=== PATIENT | male | born 1985 | race African-American/Black ===

== ENCOUNTER 2016-10-18 19:45 | Inpatient (IN) | payer SELFPAY ==
[~2016-10-18] VITALS: Ht 175.3 cm; Wt 63.8 kg
[~2016-10-18 19:45] MED LIST: MONT10TA2
[2016-10-18 19:51] VITALS: BP 148/70; PULSE 75; RESP 18; TEMP 98.5; O2SAT 98
[2016-10-18 20:03] VITALS: O2SAT 100
[2016-10-18 20:49] LABS: AUTOMATED NEUTROPHIL # 5.6 TH/MM3 (1.8-7.7); BASOPHIL # 0.1 TH/MM3 (0-0.2); BASOPHIL % 0.5 % (0.0-2.0); EOSINOPHIL # 0.7 TH/MM3 (0-0.4); EOSINOPHIL % 7.2 % (0.0-4.0); HEMATOCRIT 45.8 % (39.0-51.0); HEMO FLAGS DIFF FINAL; LYMPH % 22.8 % (9.0-44.0); LYMPHOCYTE # 2.1 TH/MM3 (1.0-4.8); MEAN CELL VOLUME 85.5 FL (80.0-100.0); MEAN CORPUSCULAR HEMOGLOBIN 27.5 PG (27.0-34.0); MEAN CORPUSCULAR HGB CONC 32.2 % (32.0-36.0); MONO % 8.8 % (0.0-8.0); NEUT % 60.7 % (16.0-70.0); PLATELET COUNT 263 TH/MM3 (150-450); RED BLOOD COUNT 5.36 MIL/MM3 (4.50-5.90); RED CELL DISTRIBUTION WIDTH 14.6 % (11.6-17.2); WHITE BLOOD COUNT 9.2 TH/MM3 (4.0-11.0)
[2016-10-18] MEDS: PROPOFOL 500 MG/50 ML BTL IV ONE ×2 (20:56→20:57)
[2016-10-18 21:08] VITALS: BP 152/68; PULSE 71; RESP 18; O2SAT 99
[2016-10-18 21:10] LABS: POTASSIUM 4.1 MEQ/L (3.5-5.1)
--- NOTE | 2016-10-18 21:20 | RADRPT ---
EXAM DATE/TIME: 10/18/2016 20:41 [facility] COMPARISON: No previous studies available for comparison. INDICATIONS : Trauma, struck a competitors leg, right leg pain MEDICAL HISTORY : None. SURGICAL HISTORY : None. ENCOUNTER: Initial ACUITY: 1 day PAIN SCORE: 8/10 LOCATION: Right distal leg FINDINGS: There is persistent tibiotalar dislocation in fiberglass. The tibia is displaced medially. CONCLUSION: Persistent tibiotalar dislocation. Jaime Owen MD FACR on October 18, 2016 at 21:17 Board Certified Radiologist. This report was verified electronically.
--- NOTE | 2016-10-18 21:20 | RADRPT ---
EXAM DATE/TIME: 10/18/2016 20:40 [facility] COMPARISON: No previous studies available for comparison. INDICATIONS : Trauma, struck a competitors leg, right leg pain MEDICAL HISTORY : None. SURGICAL HISTORY : None. ENCOUNTER: Initial ACUITY: 1 day PAIN SCORE: 8/10 LOCATION: Right distal leg FINDINGS: Two view examination of the right tibia demonstrates no evidence of fracture or dislocation. Bony mi neralization is normal. The soft tissue structures are intact. Fractures again seen about the ankle . CONCLUSION: Fracture again seen about the ankle in [facility]. Jaime Owen MD FACR on October 18, 2016 at 21:18 Board Certified Radiologist. This report was verified electronically.
--- NOTE | 2016-10-18 21:30 | PD ---
HPI Chief Complaint: Injury Time Seen by Provider: 19:56 Travel History International Travel<30 days: No Contact w/Intl Traveler<30days: No Traveled to known affect area: No History of Present Illness HPI Is a 31-year-old male who was wrestling in an organized emergency practice today and he dislocated his right ankle. Arrives via EMS splinted in the position he was found, no other complaints denies any head injury neck injury back injury chest injury or abdomen injury. Did otherwise healthy male. He was given morphine 8 mg IV in route. [facility] Past Medical History Asthma: Yes Diminished Hearing: No Immunizations Current: Yes Tetanus Vaccination: > 5 Years Influenza Vaccination: No Past Surgical History Surgical History: No Previous Surgery Social History Alcohol Use: Yes (OCCASIONAL) Tobacco Use: No Substance Use: No Allergies-Medications (Allergen,Severity, Reaction): Coded Allergies: No Known Allergies (Verified , 10/18/16) Reported Meds & Prescriptions Reported Meds & Active Scripts Active No Active Prescriptions or Reported Medications Review of Systems Except as stated in HPI: all other systems reviewed are Neg Physical Exam Narrative GENERAL: Well-developed well-nourished, no distress. SKIN: Focused skin assessment warm/dry. HEAD: Atraumatic. Normocephalic. EYES: Pupils equal and round. No scleral icterus. No injection or drainage. ENT: No nasal bleeding or discharge. Mucous membranes pink and moist. NECK: Trachea midline. No JVD. CARDIOVASCULAR: Regular rate and rhythm. No murmur appreciated. RESPIRATORY: No accessory muscle use. Clear to auscultation. Breath sounds equal bilaterally. GASTROINTESTINAL: Abdomen soft, non-tender, nondistended. Hepatic and splenic margins not palpable. MUSCULOSKELETAL: There is an obvious dislocation of his right ankle ring the foot is externally rotated past 90 from the tib-fib. Dorsalis pedal pulses bounding, tib-fib pulses not palpable initially secondary to anatomy distortion. Proximal tib-fib foot are nontender and no abnormality. Hips normal, upper extremities atraumatic. NEUROLOGICAL: Awake and alert. No obvious cranial nerve deficits. Motor grossly within normal limits. Normal speech. PSYCHIATRIC: Appropriate mood and affect; insight and judgment normal. Data Data Last Documented VS Vital Signs Date Time Temp Pulse Resp B/P Pulse Ox O2 Delivery O2 Flow Rate FiO2 10/18/16 21:08 71 18 152/68 99 Nasal Cannula 2 10/18/16 19:51 98.5 Orders Basic Metabolic Panel (Bmp) (10/18/16 19:56) Complete Blood Count With Diff (10/18/16 19:56) Propofol 500 Mg/50 Ml Inj (Diprivan 500 (10/18/16 20:00) Ankle, Complete ([id number]) (10/18/16 ) Tibia/Fibula (Ap/Lat) (10/18/16 ) Consult Orthopedic (10/18/16 ) Admit Order (Ed Use Only) (10/18/16 ) Admit To Inpatient (10/18/16 ) Vital Signs (Adult) Q4H (10/18/16 22:06) Activity Bed Rest (10/18/16 22:06) Diet Npo (10/19/16 Breakfast) Sodium Chlor 0.9% 1000 Ml Inj (Ns 1000 M (10/18/16 22:06) Acetaminophen (Tylenol) (10/18/16 22:15) Ondansetron Inj (Zofran Inj) (10/18/16 22:15) Prothrombin Time / Inr (Pt) (10/19/16 06:00) Scd Bilateral/Knee High MARK.BID (10/18/16 22:06) Isaias Bilateral/Knee High MARK.QSHIFT (10/18/16 22:06) Morphine Inj (Morphine Inj) (10/18/16 22:15) Morphine Inj (Morphine Inj) (10/18/16 22:15) Naloxone Inj (Narcan Inj) (10/18/16 22:15) Magnesium Hydroxide Liq (Milk Of Magnesi (10/18/16 22:15) Sennosides (Senokot) (10/18/16 22:15) Bisacodyl Supp (Dulcolax Supp) (10/18/16 22:15) Lactulose Liq (Lactulose Liq) (10/18/16 22:15) Inpatient Certification (10/18/16 ) Labs Laboratory Tests Test 10/18/16 20:20 White Blood Count 9.2 TH/MM3 Red Blood Count 5.36 MIL/MM3 Hemoglobin 14.8 GM/DL Hematocrit 45.8 % Mean Corpuscular Volume 85.5 FL Mean Corpuscular Hemoglobin 27.5 PG Mean Corpuscular Hemoglobin 32.2 % Concent Red Cell Distribution Width 14.6 % Platelet Count 263 TH/MM3 Mean Platelet Volume 8.6 FL Neutrophils (%) (Auto) 60.7 % Lymphocytes (%) (Auto) 22.8 % Monocytes (%) (Auto) 8.8 % Eosinophils (%) (Auto) 7.2 % Basophils (%) (Auto) 0.5 % Neutrophils # (Auto) 5.6 TH/MM3 Lymphocytes # (Auto) 2.1 TH/MM3 Monocytes # (Auto) 0.8 TH/MM3 Eosinophils # (Auto) 0.7 TH/MM3 Basophils # (Auto) 0.1 TH/MM3 CBC Comment DIFF FINAL Differential Comment Sodium Level 139 MEQ/L Potassium Level 4.1 MEQ/L Chloride Level 105 MEQ/L Carbon Dioxide Level 24.0 MEQ/L Anion Gap 10 MEQ/L Blood Urea Nitrogen 15 MG/DL Creatinine 1.29 MG/DL Estimat Glomerular Filtration 80 ML/MIN Rate Random Glucose 96 MG/DL Calcium Level 9.2 MG/DL MDM Medical Decision Making Medical Screen Exam Complete: Yes Emergency Medical Condition: Yes Differential Diagnosis Ankle fracture, ankle dislocation, complete tendon rupture likely. Narrative Course Patient was roomed in the emergency department, he was sedated and reduced after informed consent. Basic labs sent as part of preop workup, ankle reduced , pulse motor and sensory remained intact after reduction of multiple rechecks in the emergency department. Patient was discussed with Dr. Díaz, he is reviewed the x-rays and recommend patient for operative intervention in the morning. This was conveyed to the patient he is agreeable. Patient was discussed with Dr. Ortiz for admission. Procedures Procedure Narrative After the risks and benefits were discussed the following procedure was performed: MODERATE SEDATION: The patient was placed on a cardiac care unit nurse and pulse oximetry. An ambu bag and suction was immediately available at bedside. The patient was monitored by the nurse. Oxygen saturation , heart rate and blood pressure were monitored. Procedural sedation was acheived using 200 mg of propofol. The patient was observed until awake and alert. Procedural Sedation time in attendance was 16 minutes. No apnea and no bradycardia no hypoxia and no hypotension during sedation. ORTHOPEDIC REDUCTION: After informed consent, the patient was reduced with standard traction countertraction method and was rotated in a more anatomic position. Pulses motor and sensory were intact before and after the reduction. He was splinted posterior slab. [facility] circuit board repair technician is assisting this procedure as well as Ayesha [id number]. Diagnosis Primary Impression: Ankle fracture, right Additional Impression: Ankle dislocation Admitting Information Admitting Physician Requests: Admit Scripts No Active Prescriptions or Reported Meds Condition: Stable Syed Chan MD Oct 18, 2016 21:30
[2016-10-18] MEDS ORDERED: NALOXONE HCL 0.4 MG/ML AMP IV PRN (22:15)
[2016-10-18] MEDS ORDERED: LACTULOSE SYRUP 20 GM/30 ML CUP PO PRN (22:15)
[2016-10-18] MEDS ORDERED: ACETAMINOPHEN 325 MG TAB PO PRN (22:15)
[2016-10-18] MEDS ORDERED: ONDANSETRON HCL 4 MG/2 ML VIAL IVP PRN (22:15)
[2016-10-18] MEDS ORDERED: SENNOSIDES 8.6 MG TAB PO PRN (22:15)
[2016-10-18] MEDS ORDERED: BISACODYL 10 MG SUPP RECTAL PRN (22:15)
[2016-10-18] MEDS ORDERED: MAGNESIUM HYDROXIDE SUSP 30 ML CUP PO PRN (22:15)
[2016-10-18] MEDS ORDERED: MORPHINE SULFATE 4 MG/ML INJ IV PRN (22:15)
[2016-10-18] MEDS: SODIUM CHLOR 0.9% 1000 ML INJ 1,000 ML IV SCH (22:40)
[2016-10-18 22:41] VITALS: BP 136/68
--- NOTE | 2016-10-18 23:52 | HHI.HP ---
[facility] No Primary Care Physician Admission Diagnosis Ankle fracture dislocation Diagnoses: Chief Complaint: RT ankel fracture Travel History International Travel<30 Days: No Contact w/Intl Traveler <30 Da: No Traveled to Known Affected Are: No History of Present Illness 31 y/o male with no medical history presented to the ED via EMS with complaints of right ankle pain. Patient states he was at [facility] when he felt his ankle twisted. He states the pain is throbbing, 4/10, no associated symptoms, made worse with movement, and the pain is better with the pain medication. Denies any chest pain, sob, fever or chills. Past Family Social History Past Medical History Patient denies any medical history. Past Surgical History Patient denies any surgical history. Reported Medications Reported Meds & Active Scripts Active No Active Prescriptions or Reported Medications Allergies: Coded Allergies: No Known Allergies (Verified , 10/18/16) Active Ordered Medications Current Medications Medications (Trade) Dose Ordered Sig/Cullen Route Start Time Stop Time Status Last Admin (NS 1000 ml Inj) 1,000 ml @ 100 mls/hr Q10H IV 10/18/16 22:06 10/18/16 22:40 (Tylenol) 650 mg Q4H PRN PO 10/18/16 22:15 (Zofran Inj) 4 mg Q6H PRN IVP 10/18/16 22:15 (Morphine Inj) 2 mg Q3H PRN IV 10/18/16 22:15 (Morphine Inj) 4 mg Q3H PRN IV 10/18/16 22:15 (Narcan Inj) 0.4 mg UNSCH PRN IV 10/18/16 22:15 (Milk Of Magnesia Liq) 30 ml Q12H PRN PO 10/18/16 22:15 (Senokot) 17.2 mg Q12H PRN PO 10/18/16 22:15 (Dulcolax Supp) 10 mg DAILY PRN RECTAL 10/18/16 22:15 (Lactulose Liq) 30 ml DAILY PRN PO 10/18/16 22:15 Family History Patient denies any family history, no heart disease or cancer. Social History Tobacco use: Denies Alcohol use: Occasionally Illicit drug use: Denies Physical Exam Vital Signs Vital Signs Date Time Temp Pulse Resp B/P Pulse Ox O2 Delivery O2 Flow Rate FiO2 10/18/16 22:41 61 18 136/68 99 10/18/16 21:08 71 18 152/68 99 Nasal Cannula 2 10/18/16 20:03 100 2.00 10/18/16 19:51 98.5 75 18 148/70 98 Physical Exam GENERAL: This is a well-nourished, well-developed patient, in no apparent distress. SKIN: No rashes, ecchymoses or lesions. Cool and dry. HEAD: Atraumatic. Normocephalic. EYES: Pupils equal round and reactive. ENT: Nose without bleeding, purulent drainage or septal hematoma. NECK: Trachea midline. No JVD or lymphadenopathy. CARDIOVASCULAR: Regular rate and rhythm without murmurs, gallops, or rubs. RESPIRATORY: Clear to auscultation. Breath sounds equal bilaterally. No wheezes , rales, or rhonchi. GASTROINTESTINAL: Abdomen soft, non-tender, nondistended. No hepato-splenomegaly , or palpable masses. MUSCULOSKELETAL:Rt ankle tenderness, and edema No calf tenderness. NEUROLOGICAL: Awake and alert. Motor and sensory grossly within normal limits. Normal speech. Laboratory Laboratory Tests Test 10/18/16 20:20 White Blood Count 9.2 Red Blood Count 5.36 Hemoglobin 14.8 Hematocrit 45.8 Mean Corpuscular Volume 85.5 Mean Corpuscular Hemoglobin 27.5 Mean Corpuscular Hemoglobin 32.2 Concent Red Cell Distribution Width 14.6 Platelet Count 263 Mean Platelet Volume 8.6 Neutrophils (%) (Auto) 60.7 Lymphocytes (%) (Auto) 22.8 Monocytes (%) (Auto) 8.8 Eosinophils (%) (Auto) 7.2 Basophils (%) (Auto) 0.5 Neutrophils # (Auto) 5.6 Lymphocytes # (Auto) 2.1 Monocytes # (Auto) 0.8 Eosinophils # (Auto) 0.7 Basophils # (Auto) 0.1 CBC Comment DIFF FINAL Differential Comment Sodium Level 139 Potassium Level 4.1 Chloride Level 105 Carbon Dioxide Level 24.0 Anion Gap 10 Blood Urea Nitrogen 15 Creatinine 1.29 Estimat Glomerular Filtration 80 Rate Random Glucose 96 Calcium Level 9.2 Result Diagram: 10/18/16201910/18/162019 Imaging Last Impressions Tibia/Fibula X-Ray 10/18/16 0000 Signed Impressions: Service Date/Time: Tuesday, October 18, 2016 20:40 - CONCLUSION: Fracture again seen about the ankle in [facility]. Jaime Owen MD FACR Ankle X-Ray 10/18/16 0000 Signed Impressions: Service Date/Time: Tuesday, October 18, 2016 20:41 - CONCLUSION: Persistent tibiotalar dislocation. Jaime Owen MD FACR Assessment and Plan Problem List: (1) Ankle fracture, right ICD Code: S82.891A Status: Acute Assessment and Plan 31 y/o male with no medical history presented to the ED via EMS with complaints of right ankle pain. Ankle Fracture, right Ankle xray reviewed shows Persistent tibiotalar dislocation. -Consult Orthopedic -Pain management with IV Morphine -NPO, Bedrest, IVF for hydration DVT prophylaxis: SCD on left LE ATTENDING MD NOTE: I personally examined the patient. He was injured during when he landed awkwardly. He felt immediate pain in the right ankle. No other injuries. Pain is well controlled with pain medication. He reports history of asthma, which is well controlled. No other pertinent medical history. Right leg in splint. Sensation is normal in the toes. Dislocation was reduced in ER. Orthopedic surgery consult is pending. Continue pain control. Discussed Condition With Patient Physician Certification 2 Midnight Certification Type: Admission for Inpatient Services Order for Inpatient Services The services are ordered in accordance with Medicare regulations or non- Medicare payer requirements, as applicable. In the case of services not specified as inpatient-only, they are appropriately provided as inpatient services in accordance with the 2-midnight benchmark. Estimated LOS (days): 2 days is the estimated time the patient will need to remain in the hospital, assuming treatment plan goals are met and no additional complications. Post-Hospital Plan: Home Problem Qualifiers (1) Ankle fracture, right: Deirdre Perkins FARHAN Oct 18, 2016 23:52 Naun Ortiz MD Oct 19, 2016 00:08
[2016-10-19 00:07] VITALS: BP 131/75; PULSE 63; RESP 18; TEMP 97.1; O2SAT 99
[2016-10-19] MEDS: MORPHINE SULFATE 4 MG/ML INJ IV PRN ×2 (00:39→09:55)
[2016-10-19] MEDS ORDERED: SODIUM CHLORID 0.9% 500 ML IV PRN (03:30)
[2016-10-19] MEDS ORDERED: METOPROLOL TARTRATE 25 MG TAB PO PRN (03:30)
[2016-10-19] MEDS ORDERED: LACTATED RINGER'S 1000 ML IV PRN (03:30)
[2016-10-19] MEDS ORDERED: POVIDONE IODINE 5% (ANTISEPSIS KIT) 4 APPLICATIONS EACH NARE PRN (03:30)
[2016-10-19] MEDS ORDERED: INSULIN HUMAN REGULAR 1,000 UNITS/10 ML VIAL SQ PRN (03:30)
[2016-10-19] MEDS ORDERED: CHLORHEXIDINE GLUCONATE 2 % 1 PACK (2 CLOTHS) TOPICAL PRN (03:30)
[2016-10-19 04:15] VITALS: BP 128/72; PULSE 63; RESP 18; TEMP 97.7; O2SAT 98
[2016-10-19 07:13] LABS: PROTHROMBIN TIME - PATIENT 11.6 SEC (9.8-11.6)
[2016-10-19 08:06] VITALS: BP 132/80; PULSE 62; RESP 18; TEMP 98.3; O2SAT 98
[2016-10-19] MEDS: SODIUM CHLOR 0.9% 1000 ML INJ 1,000 ML IV SCH (08:19)
--- NOTE | 2016-10-19 09:25 | HHI.PR ---
Subjective Remarks This is a pleasant 31 y/o Male with Right ankle pain after a practice of [employer] , he twisted his ankle. found with Right Ankle fracture, status post Orthopedic outpatient surgery rn consult and recommended Open reduction and internal fixation. no other complaint. Objective Vital Signs Date Time Temp Pulse Resp B/P Pulse Ox O2 Delivery O2 Flow Rate FiO2 10/19/16 08:06 98.3 62 18 132/80 98 10/19/16 04:15 97.7 63 18 128/72 98 10/19/16 00:45 18 10/19/16 00:07 97.1 63 18 131/75 99 10/18/16 22:41 61 18 136/68 99 10/18/16 21:08 71 18 152/68 99 Nasal Cannula 2 10/18/16 20:03 100 2.00 10/18/16 19:51 98.5 75 18 148/70 98 I/O 10/18/16 10/18/16 10/18/16 10/19/16 10/19/16 10/19/16 07:00 15:00 23:00 07:00 15:00 23:00 Intake Total 240 ml 566 ml Balance 240 ml 566 ml Intake Oral 240 ml 0 ml IV Total 566 ml # Voids 0 # Bowel Movements 0 Result Diagram: 10/18/16201910/18/162019 Imaging Last Impressions Tibia/Fibula X-Ray 10/18/16 0000 Signed Impressions: Service Date/Time: Tuesday, October 18, 2016 20:40 - CONCLUSION: Fracture again seen about the ankle in [facility]. Jaime Owen MD FACR Ankle X-Ray 10/18/16 0000 Signed Impressions: Service Date/Time: Tuesday, October 18, 2016 20:41 - CONCLUSION: Persistent tibiotalar dislocation. Jaime Owen MD FACR Procedures None Other Results Laboratory Tests Test 10/18/16 10/19/16 20:20 06:32 White Blood Count 9.2 TH/MM3 Red Blood Count 5.36 MIL/MM3 Hemoglobin 14.8 GM/DL Hematocrit 45.8 % Mean Corpuscular Volume 85.5 FL Mean Corpuscular Hemoglobin 27.5 PG Mean Corpuscular Hemoglobin 32.2 % Concent Red Cell Distribution Width 14.6 % Platelet Count 263 TH/MM3 Mean Platelet Volume 8.6 FL Neutrophils (%) (Auto) 60.7 % Lymphocytes (%) (Auto) 22.8 % Monocytes (%) (Auto) 8.8 % Eosinophils (%) (Auto) 7.2 % Basophils (%) (Auto) 0.5 % Neutrophils # (Auto) 5.6 TH/MM3 Lymphocytes # (Auto) 2.1 TH/MM3 Monocytes # (Auto) 0.8 TH/MM3 Eosinophils # (Auto) 0.7 TH/MM3 Basophils # (Auto) 0.1 TH/MM3 CBC Comment DIFF FINAL Differential Comment Sodium Level 139 MEQ/L Potassium Level 4.1 MEQ/L Chloride Level 105 MEQ/L Carbon Dioxide Level 24.0 MEQ/L Anion Gap 10 MEQ/L Blood Urea Nitrogen 15 MG/DL Creatinine 1.29 MG/DL Estimat Glomerular Filtration 80 ML/MIN Rate Random Glucose 96 MG/DL Calcium Level 9.2 MG/DL Prothrombin Time 11.6 SEC Prothromb Time International 1.0 RATIO Ratio Objective Remarks GENERAL: This is a well-nourished, well-developed patient, in no apparent distress. SKIN: No rashes, ecchymoses or lesions. Cool and dry. HEAD: Atraumatic. Normocephalic. EYES: Pupils equal round and reactive. ENT: Nose without bleeding, purulent drainage or septal hematoma. NECK: Trachea midline. No JVD or lymphadenopathy. CARDIOVASCULAR: Regular rate and rhythm without murmurs, gallops, or rubs. RESPIRATORY: Clear to auscultation. Breath sounds equal bilaterally. No wheezes , rales, or rhonchi. GASTROINTESTINAL: Abdomen soft, non-tender, nondistended. No hepato-splenomegaly , or palpable masses. MUSCULOSKELETAL:Rt ankle tenderness, and edema No calf tenderness. NEUROLOGICAL: Awake and alert. Motor and sensory grossly within normal limits. Normal speech. Medications and IVs Current Medications Medications (Trade) Dose Ordered Sig/Cullen Route Start Time Stop Time Status Last Admin (NS 1000 ml Inj) 1,000 ml @ 100 mls/hr Q10H IV 10/18/16 22:06 10/19/16 08:19 (Tylenol) 650 mg Q4H PRN PO 10/18/16 22:15 (Zofran Inj) 4 mg Q6H PRN IVP 10/18/16 22:15 (Morphine Inj) 2 mg Q3H PRN IV 10/18/16 22:15 (Morphine Inj) 4 mg Q3H PRN IV 10/18/16 22:15 10/19/16 00:39 (Narcan Inj) 0.4 mg UNSCH PRN IV 10/18/16 22:15 (Milk Of Magnesia Liq) 30 ml Q12H PRN PO 10/18/16 22:15 (Senokot) 17.2 mg Q12H PRN PO 10/18/16 22:15 (Dulcolax Supp) 10 mg DAILY PRN RECTAL 10/18/16 22:15 Lactulose 30 ml 30 ml DAILY PRN PO 10/18/16 22:15 Lactated Ringer's 1,000 ml @ 30 mls/hr Q24H PRN IV 10/19/16 03:30 10/22/16 03:29 (NS 500 ml Inj) 500 ml @ 30 mls/hr [id number] PRN IV 10/19/16 03:30 10/22/16 03:29 A/P Assessment and Plan 31 y/o male with no medical history presented to the ED via EMS with complaints of right ankle pain. Ankle Fracture, right Ankle xray reviewed shows Persistent tibiotalar dislocation. -for ORIF by Orthopedic surgery. -Pain management with IV Morphine -NPO, Bedrest, IVF for hydration DVT prophylaxis: SCD on left LE Discharge Planning Once cleared by Orthopedic laboratory specialist. Marek Vergara MD Oct 19, 2016 09:25
[2016-10-19 11:45] VITALS: BP 140/75; PULSE 47; RESP 18; TEMP 97.5; O2SAT 98
[2016-10-19] MEDS ORDERED: VANCOMYCIN HCL 1000 MG VIAL ONE (12:37)
[2016-10-19] MEDS ORDERED: ceFAZolin INJ 1,000 MG VIAL ONE (12:38)
[2016-10-19] MEDS ORDERED: BUPIVACAINE HCL PF 0.5% 30 ML VIAL ONE (12:38)
[2016-10-19] MEDS ORDERED: PROPOFOL 200 MG/20 ML AMP IV ONE (12:47)
[2016-10-19] MEDS ORDERED: NEOSTIGMINE 3 MG/3 ML SYR IV ONE (12:47)
[2016-10-19] MEDS ORDERED: fentaNYL CITRATE 250 MCG/5 ML AMP ONE (12:47)
[2016-10-19] MEDS ORDERED: ONDANSETRON HCL 4 MG/2 ML VIAL IV PUSH ONE (12:47)
[2016-10-19] MEDS ORDERED: GENTAMICIN SULFATE 80 MG/2 ML VIAL IRRIGATION ONE (13:30)
[2016-10-19] MEDS: DEXT 5%-NACL 0.45% 1000 ML INJ 1,000 ML IV SCH ×2 (14:00→23:12)
[2016-10-19] MEDS ORDERED: HYDR-3288 PO (14:03)
[2016-10-19] MEDS ORDERED: ASPI81CH37 CHEW (14:04)
[2016-10-19] MEDS ORDERED: DO NOT ADM ANY ANTICOAGULANT DRUGS PRN (14:13)
[2016-10-19] MEDS ORDERED: ACETAMINOPHEN/HYDROcodone 325 MG/7.5 MG TAB PO PRN ×2 (14:15)
[2016-10-19] MEDS ORDERED: MISCELLANEOUS PHARMACY INFORMATION XX ONE (14:15)
[2016-10-19] MEDS ORDERED: ONDANSETRON HCL 4 MG/2 ML VIAL IVP PRN (14:15)
[2016-10-19] MEDS ORDERED: NALOXONE HCL 0.4 MG/ML AMP IV PRN (14:15)
[2016-10-19] MEDS ORDERED: SODIUM CHLORIDE 0.9% FLUSH 5 ML FLUSH IVF PRN (14:15)
[2016-10-19] MEDS ORDERED: MISCELLANEOUS NURSING INFORMATION XX PRN (14:15)
[2016-10-19] MEDS ORDERED: MORPHINE SULFATE 4 MG/ML INJ IV PUSH PRN (14:15)
[2016-10-19] MEDS ORDERED: Post-op Orders (for Pharmacy) MISC XX ONE (14:15)
[2016-10-19] MEDS ORDERED: MAGNESIUM HYDROXIDE SUSP 30 ML CUP PO PRN (14:15)
[2016-10-19] MEDS ORDERED: MORPHINE SULFATE 30 MG/30 ML PCA IV SCH (14:15)
[2016-10-19] MEDS ORDERED: diphenhydrAMINE HCL 25 MG CAP PO PRN (14:15)
--- NOTE | 2016-10-19 14:17 | RADRPT ---
EXAM DATE/TIME: 10/19/2016 13:49 [facility] COMPARISON: No previous studies available for comparison. INDICATIONS : Open reduction internal fixation of the right ankle. MEDICAL HISTORY : None. SURGICAL HISTORY : None. ENCOUNTER: Subsequent ACUITY: 2 days PAIN SCORE: Non-responsive. LOCATION: Right ankle. CONCLUSION: Fluoroscopic images during plate and screws along the distal fibula. Syndesmotic screw noted. Fractur e near anatomic alignment. Mc Piedra MD on October 19, 2016 at 14:15 Board Certified Radiologist. This report was verified electronically.
[2016-10-19] MEDS ORDERED: MORPHINE SULFATE 4 MG/ML INJ ONE (14:25)
[2016-10-19] MEDS ORDERED: *MEPERIDINE 25 MG INJ VIAL PERIprocedural Use ONLY ONE (14:27)
--- NOTE | 2016-10-19 14:37 | MB ---
cc: JANEY FIGUEROA M.D. DATE OF CONSULTATION: 10/19/2016. REASON FOR CONSULTATION: Right ankle fracture. HISTORY OF PRESENT ILLNESS: This patient is a 31-year-old male who was doing mixed martial arts [employer] and was in a grappling match. He states his opponent had twisted his right ankle and he developed severe onset of pain. He felt his ankle snap. He was unable to stand or bear weight. He was taken to the [facility] Emergency Room where x-rays confirmed evidence of a right trimalleolar ankle fracture-dislocation. He was placed in a splint and admitted to the medical service and orthopedic surgery was consulted. The pain is severe and constant. It is worsened with any movement. No numbness or tingling. PAST MEDICAL HISTORY: Negative. PAST SURGICAL HISTORY: Negative. MEDICATIONS: He takes no medications. ALLERGIES: HE HAS NO KNOWN DRUG ALLERGIES. REVIEW OF SYSTEMS: A ten-point review of systems is negative other than the history of present illness. FAMILY HISTORY: Reviewed and noncontributory. SOCIAL HISTORY: He occasionally drinks alcohol. He does not use tobacco products or any drugs. PHYSICAL EXAMINATION: VITAL SIGNS: Temperature 98.5, pulse is 75, respirations 18, blood pressure 140/70. GENERAL: In general, the patient is a well-nourished male who is physically fit. HEAD, EYES, EARS, NOSE, THROAT: Normocephalic and atraumatic. Pupils round and reactive to light. Extraocular muscles intact. NECK: The neck is supple. LUNGS: Clear. HEART: Regular rate and rhythm. ABDOMEN: Abdomen soft and nontender. EXTREMITIES: On the right lower extremity he has his ankle splinted. He has swelling, ecchymosis and tenderness to palpation. He can flex and extend his toes distally with limitation of motion on clinical exam. LABORATORY STUDIES: White blood cell count is 9.2, hemoglobin 14, hematocrit is 45, platelet count 263,000. Creatinine 1.29, glucose is 96. X-RAYS: X-rays of the right ankle were reviewed. AP, lateral and oblique views show the trimalleolar ankle fracture dislocation. IMPRESSION: A 31-year-old male who sustained a traumatic injury to his right ankle doing mixed martial arts. He has a right trimalleolar ankle fracture-dislocation. PLAN: I discussed the diagnosis and treatment options including the option of nonoperative treatment versus surgery. The surgery consists of open reduction internal fixation. The risks of surgery were discussed, which include but are not limited to anesthesia, bleeding, infection, damage to nerve or blood vessels, pain, stiffness, failure of hardware, blood clots. The patient understands. He favors the benefits over the risks. He does wish to proceed with surgical intervention. Written consent has been obtained. The surgical site has been marked. MD EFREN Celis/JCAna /9:08 AM /2:28 PM
[2016-10-19 16:00] VITALS: BP 129/77; PULSE 67; RESP 18; TEMP 97.1; O2SAT 100
[2016-10-19 20:10] VITALS: BP 143/83; PULSE 60; RESP 18; TEMP 97.6; O2SAT 98
[2016-10-19] MEDS: SODIUM CHLORIDE 0.9% FLUSH 5 ML FLUSH IVF SCH (21:00)
[2016-10-19] MEDS: PCA - TOTAL MG MORPHINE DELIVERED PER SHIFT SCH (22:00)
[2016-10-19] MEDS: DOCUSATE SODIUM 50 MG/SENNA 8.6 MG TAB PO SCH (22:22)
[2016-10-20 00:10] VITALS: BP 130/84; PULSE 65; RESP 18; TEMP 98.9; O2SAT 96
[2016-10-20 04:02] VITALS: BP 134/82; PULSE 66; RESP 18; TEMP 98.4; O2SAT 97
[2016-10-20] MEDS: PCA - TOTAL MG MORPHINE DELIVERED PER SHIFT SCH (05:57)
[2016-10-20 08:00] VITALS: BP 142/84; PULSE 61; RESP 16; TEMP 98.2; O2SAT 99
--- NOTE | 2016-10-20 08:43 | PD.ORT.PN ---
Subjective Post Op Day #: 1 Subjective Remarks pain under control Objective Vitals Vital Signs Date Time Temp Pulse Resp B/P Pulse Ox O2 Delivery O2 Flow Rate FiO2 10/20/16 05:57 18 10/20/16 04:02 98.4 66 18 134/82 97 10/20/16 00:10 98.9 65 18 130/84 96 10/19/16 22:00 18 10/19/16 20:10 97.6 60 18 143/83 98 10/19/16 16:00 97.1 67 18 129/77 100 10/19/16 15:30 97.0 63 16 134/86 94 Room Air 10/19/16 15:00 14 10/19/16 14:45 80 16 154/84 94 Room Air 10/19/16 14:30 99 15 163/78 100 Nasal Cannula 3 10/19/16 14:20 96.4 91 14 166/99 100 Nasal Cannula 3 10/19/16 11:45 97.5 47 18 140/75 98 I/O 10/19/16 10/19/16 10/19/16 10/20/16 10/20/16 10/20/16 07:00 15:00 23:00 07:00 15:00 23:00 Intake Total 566 ml 1403 ml 2035 ml 736 ml Output Total 630 ml 1000 ml 750 ml Balance 566 ml 773 ml 1035 ml -14 ml Intake Oral 0 ml 480 ml 240 ml IV Total 566 ml 553 ml 1555 ml 496 ml Other 850 ml Output Urine Total 620 ml 1000 ml 750 ml Estimated Blood Loss 10 ml # Voids 0 # Bowel Movements 0 0 0 0 Result Diagram: 10/18/16201910/18/162019 Objective Remarks in bed, nad dressing and splint c/d/i nvi cap refill Assessment & Plan Ortho Post Op Day #: 1 Problem List: Assessment and Plan s/p ORIF R ankle with repair of syndesmosis NWB maintain splint pain control ortho stable, cleared for d/c when med stable f/up dr. thorpe 1-2 weeks Boyd Uriostegui Oct 20, 2016 08:43
[2016-10-20] MEDS ORDERED: CRUTMIS35 (08:45)
--- NOTE | 2016-10-20 08:56 | MP ---
cc: JANEY FIGUEROA M.D. DATE OF SURGERY: 10/19/2016 PREOPERATIVE DIAGNOSIS: Right trimalleolar ankle fracture with disruption of syndesmosis. POSTOPERATIVE DIAGNOSIS: Right trimalleolar ankle fracture with disruption of syndesmosis. OPERATION: 1. Open reduction, internal fixation right trimalleolar ankle fracture-dislocation. 2. Open reduction, internal fixation of right ankle syndesmotic injury. SURGEON Dr. Janey Figueroa AIRPLANE PILOT SUPERVISOR: KATHLEEN Keen ANESTHESIA General. ESTIMATED BLOOD LOSS: 50 cc TOURNIQUET TIME: Zero minutes COMPLICATIONS: None. JUSTIFICATION FOR PROCEDURE: This patient is a 31 year-old male who sustained a severe injury to the right lower extremity and right ankle while he was doing martial arts. He sustained complete fracture-dislocation of his right ankle. He was taken to [facility] emergency room. He was admitted. Orthopedic surgery was consulted. The patient was counseled on the risks, benefits and alternatives of the above named surgical procedure. He wished to proceed with surgery. A written consent was obtained. The patient was identified by name, taken to the operating room, placed supine on on the operating room table. General anesthesia was administered, as well as 2 grams of IV Ancef and 1 gram of IV vancomycin. The right lower extremity was prepped and draped using isopropyl alcohol, Hibiclens solution, Chloraprep solution. After a time out was performed, a longitudinal incision was made over the lateral aspect of the right ankle. After time-out was performed a longitudinal incision made over the lateral aspect of the right ankle. The fascial layer was incised and the periosteum elevated off the distal fibula. An open reduction was performed with the assistance of fracture reduction clamps. Subsequently Synthes distal tibial locking plate was applied over the lateral aspect of the distal fibula. A combination both locking and nonlocking screws were used for fixation. Fluoroscopic imaging showed hardware placement and fracture reduction to be appropriate. An incision was made over the lateral aspect of the knee and malleolus to assist with fracture reduction and also a fracture reduction tenaculum clamp was also placed to assist with reduction of syndesmotic injury. Subsequently a Synthes 50 x 3.5 millimeter fully threaded screw was placed from the lateral distal tibia through the plate into the tibia for surgical fixation repair of the syndesmotic injury. Fluoroscopic imaging showed hardware placement, fracture reduction. The ankle mortis appears appropriate and even the posterior malleolus fracture appeared in good alignment. The surgical wound was thoroughly irrigated with sterile saline solution. The subcutaneous layer was closed with a combination of 2-0 Vicryl and 3-0 Vicryl suture. Skin incision closed with bibi. Sterile dressing applied. The patient was placed in a well-padded leg dewitt. The patient tolerated the procedure well with no intraoperative complications. Note: Charles Uriostegui, physician medical assistant internal medicine certified was present during the entire procedure to include patient positioning and the procedure itself. The medical necessity of a physician medical assistant internal medicine was indicated in this case due to the complexity of the procedure itself. He assisted with appropriate manipulation of the ankle. He assisted with retraction and exposure, assisted with both achieving maintaining fracture reduction along with implantation of the internal fixation device. MD EFREN Celis/BRANDY /2:03 PM /8:17 AM
[2016-10-20] MEDS: SODIUM CHLORIDE 0.9% FLUSH 5 ML FLUSH IVF SCH (09:00)
[2016-10-20] MEDS: DOCUSATE SODIUM 50 MG/SENNA 8.6 MG TAB PO SCH (09:00)
[2016-10-20] MEDS ORDERED: MULTIVITAMINS/MINERALS THERAPEUTIC TAB PO SCH (09:00)
--- NOTE | 2016-10-20 09:09 | HHI.PR ---
Subjective Remarks This is a pleasant 31 y/o Male with Right ankle pain after a practice of [employer] , he twisted his ankle. found with Right Ankle fracture, status post Orthopedic media specialist consult and recommended Open reduction and internal fixation. no other complaint. 10/20: Patient in his bedroom, no complaint, okay to discharge from Orthopedic Surgery scripts in chart will go home today, no nausea, vomit or diarrhea. Objective Vital Signs Date Time Temp Pulse Resp B/P Pulse Ox O2 Delivery O2 Flow Rate FiO2 10/20/16 05:57 18 10/20/16 04:02 98.4 66 18 134/82 97 10/20/16 00:10 98.9 65 18 130/84 96 10/19/16 22:00 18 10/19/16 20:10 97.6 60 18 143/83 98 10/19/16 16:00 97.1 67 18 129/77 100 10/19/16 15:30 97.0 63 16 134/86 94 Room Air 10/19/16 15:00 14 10/19/16 14:45 80 16 154/84 94 Room Air 10/19/16 14:30 99 15 163/78 100 Nasal Cannula 3 10/19/16 14:20 96.4 91 14 166/99 100 Nasal Cannula 3 10/19/16 11:45 97.5 47 18 140/75 98 I/O 10/19/16 10/19/16 10/19/16 10/20/16 10/20/16 10/20/16 07:00 15:00 23:00 07:00 15:00 23:00 Intake Total 566 ml 1403 ml 2035 ml 736 ml Output Total 630 ml 1000 ml 750 ml Balance 566 ml 773 ml 1035 ml -14 ml Intake Oral 0 ml 480 ml 240 ml IV Total 566 ml 553 ml 1555 ml 496 ml Other 850 ml Output Urine Total 620 ml 1000 ml 750 ml Estimated Blood Loss 10 ml # Voids 0 # Bowel Movements 0 0 0 0 Result Diagram: 10/18/16201910/18/162019 Imaging Last Impressions Ankle X-Ray 10/19/16 0000 Signed Impressions: Service Date/Time: Wednesday, October 19, 2016 13:49 - CONCLUSION: Fluoroscopic images during plate and screws along the distal fibula. Syndesmotic screw noted. Fracture near anatomic alignment. Mc F. Tocci, MD Tibia/Fibula X-Ray 10/18/16 0000 Signed Impressions: Service Date/Time: Tuesday, October 18, 2016 20:40 - CONCLUSION: Fracture again seen about the ankle in [facility]. Jaime Owen MD FACR Procedures None Other Results Laboratory Tests Test 10/18/16 10/19/16 20:20 06:32 White Blood Count 9.2 TH/MM3 Red Blood Count 5.36 MIL/MM3 Hemoglobin 14.8 GM/DL Hematocrit 45.8 % Mean Corpuscular Volume 85.5 FL Mean Corpuscular Hemoglobin 27.5 PG Mean Corpuscular Hemoglobin 32.2 % Concent Red Cell Distribution Width 14.6 % Platelet Count 263 TH/MM3 Mean Platelet Volume 8.6 FL Neutrophils (%) (Auto) 60.7 % Lymphocytes (%) (Auto) 22.8 % Monocytes (%) (Auto) 8.8 % Eosinophils (%) (Auto) 7.2 % Basophils (%) (Auto) 0.5 % Neutrophils # (Auto) 5.6 TH/MM3 Lymphocytes # (Auto) 2.1 TH/MM3 Monocytes # (Auto) 0.8 TH/MM3 Eosinophils # (Auto) 0.7 TH/MM3 Basophils # (Auto) 0.1 TH/MM3 CBC Comment DIFF FINAL Differential Comment Sodium Level 139 MEQ/L Potassium Level 4.1 MEQ/L Chloride Level 105 MEQ/L Carbon Dioxide Level 24.0 MEQ/L Anion Gap 10 MEQ/L Blood Urea Nitrogen 15 MG/DL Creatinine 1.29 MG/DL Estimat Glomerular Filtration 80 ML/MIN Rate Random Glucose 96 MG/DL Calcium Level 9.2 MG/DL Prothrombin Time 11.6 SEC Prothromb Time International 1.0 RATIO Ratio Objective Remarks GENERAL: This is a well-nourished, well-developed patient, in no apparent distress. SKIN: No rashes, ecchymoses or lesions. Cool and dry. HEAD: Atraumatic. Normocephalic. EYES: Pupils equal round and reactive. ENT: Nose without bleeding, purulent drainage or septal hematoma. NECK: Trachea midline. No JVD or lymphadenopathy. CARDIOVASCULAR: Regular rate and rhythm without murmurs, gallops, or rubs. RESPIRATORY: Clear to auscultation. Breath sounds equal bilaterally. No wheezes , rales, or rhonchi. GASTROINTESTINAL: Abdomen soft, non-tender, nondistended. No hepato-splenomegaly , or palpable masses. MUSCULOSKELETAL:Rt ankle with Orthotics in place. NEUROLOGICAL: Awake and alert. Motor and sensory grossly within normal limits. Normal speech. Medications and IVs Current Medications Medications (Trade) Dose Ordered Sig/Cullen Route Start Time Stop Time Status Last Admin (Tylenol) 650 mg Q4H PRN PO 10/18/16 22:15 (Milk Of Magnesia Liq) 30 ml Q12H PRN PO 10/18/16 22:15 (Senokot) 17.2 mg Q12H PRN PO 10/18/16 22:15 (Dulcolax Supp) 10 mg DAILY PRN RECTAL 10/18/16 22:15 Lactulose 30 ml 30 ml DAILY PRN PO 10/18/16 22:15 Lactated Ringer's 1,000 ml @ 30 mls/hr Q24H PRN IV 10/19/16 03:30 10/22/16 03:29 Sodium Chloride 500 ml @ 30 mls/hr [id number] PRN IV 10/19/16 03:30 10/22/16 03:29 (D5W-1/2 NS 1000 ml Inj) 1,000 ml @ 100 mls/hr Q10H IV 10/19/16 14:00 10/19/16 23:12 (NS Flush) 2 ml UNSCH PRN IVF 10/19/16 14:15 (NS Flush) 2 ml BID IVF 10/19/16 21:00 (Angelica-Colace) 1 tab BID PO 10/19/16 21:00 10/19/16 22:22 Magnesium Hydroxide 10 ml 10 ml Q12H PRN PO 10/19/16 14:15 (Ancef Inj/NS Inj) 100 ml @ 200 mls/hr Q8H IV 10/19/16 21:00 10/20/16 04:46 Miscellaneous Information UNSCH PRN XX 10/19/16 14:15 ([place] 7.5-325 Mg) 1 tab Q4H PRN PO 10/19/16 14:15 ([place] 7.5-325 Mg) 2 tab Q6H PRN PO 10/19/16 14:15 (Morphine Inj) 3 mg Q3H PRN IV PUSH 10/19/16 14:15 (Zofran Inj) 4 mg Q4H PRN IVP 10/19/16 14:15 (Theragran M Tab) 1 tab DAILY PO 10/20/16 09:00 (Benadryl) 25 mg Q6H PRN PO 10/19/16 14:15 (Narcan Inj) 0.4 mg UNSCH PRN IV 10/19/16 14:15 (Morphine 1 Mg/ ml UNDER SEAL OPERATOR) 30 mg UNSCH IV 10/19/16 14:15 10/19/16 15:00 UNDER SEAL OPERATOR Dosage Infused (Pha) 1 Q8HR .XX 10/19/16 22:00 10/20/16 05:57 Miscellaneous Information ALL NURSING DEPARTME... UNSCH PRN .XX 10/19/16 14:13 10/20/16 14:12 A/P Assessment and Plan 31 y/o male with no medical history presented to the ED via EMS with complaints of right ankle pain. Ankle Fracture, right Ankle xray reviewed shows Persistent tibiotalar dislocation. -Status post ORIF of the right ankle and repair of Syndesmosis. okay to discharge and follow with Doctor Boyd Díaz in one week DVT prophylaxis: SCD on left LE Discharge Planning Discharge Home today. Marek Vergara MD Oct 20, 2016 09:09
[2016-10-20] MEDS: DEXT 5%-NACL 0.45% 1000 ML INJ 1,000 ML IV SCH (10:00)
--- NOTE | 2016-10-20 10:06 | HHI.DS ---
Discharge Summary Admission Date Oct 18, 2016 at 22:08 Discharge Date: Oct 20, 2016 Admitting Diagnosis Ankle fracture dislocation (1) Ankle fracture, right ICD Code: S82.891A Diagnosis: Principal Procedures ORIF of the Right Ankle with repair of Syndesmosis. Brief History - From Admission 31 y/o male with no medical history presented to the ED via EMS with complaints of right ankle pain. Patient states he was at [facility] when he felt his ankle twisted. He states the pain is throbbing, 4/10, no associated symptoms, made worse with movement, and the pain is better with the pain medication. Denies any chest pain, sob, fever or chills. CBC/BMP: 10/18/16201910/18/162019 Significant Findings Laboratory Tests Test 10/18/16 20:20 Monocytes (%) (Auto) 8.8 % (0.0-8.0) Eosinophils (%) (Auto) 7.2 % (0.0-4.0) Eosinophils # (Auto) 0.7 TH/MM3 (0-0.4) Estimat Glomerular Filtration 80 ML/MIN (>89) Rate Imaging Last Impressions Ankle X-Ray 10/19/16 0000 Signed Impressions: Service Date/Time: Wednesday, October 19, 2016 13:49 - CONCLUSION: Fluoroscopic images during plate and screws along the distal fibula. Syndesmotic screw noted. Fracture near anatomic alignment. Mc Piedra MD Tibia/Fibula X-Ray 10/18/16 0000 Signed Impressions: Service Date/Time: Tuesday, October 18, 2016 20:40 - CONCLUSION: Fracture again seen about the ankle in [facility]. Jaime Owen MD FACR PE at Discharge GENERAL: This is a well-nourished, well-developed patient, in no apparent distress. SKIN: No rashes, ecchymoses or lesions. Cool and dry. HEAD: Atraumatic. Normocephalic. EYES: Pupils equal round and reactive. ENT: Nose without bleeding, purulent drainage or septal hematoma. NECK: Trachea midline. No JVD or lymphadenopathy. CARDIOVASCULAR: Regular rate and rhythm without murmurs, gallops, or rubs. RESPIRATORY: Clear to auscultation. Breath sounds equal bilaterally. No wheezes , rales, or rhonchi. GASTROINTESTINAL: Abdomen soft, non-tender, nondistended. No hepato-splenomegaly , or palpable masses. MUSCULOSKELETAL:Rt ankle with Orthotics in place. NEUROLOGICAL: Awake and alert. Motor and sensory grossly within normal limits. Normal speech. Hospital Course This is a pleasant 31 y/o Male with Right ankle pain after a practice of [employer] , he twisted his ankle. found with Right Ankle fracture, status post Orthopedic neurosurgery research director consult and recommended Open reduction and internal fixation. no other complaint. 10/20: Patient in his bedroom, no complaint, okay to discharge from Orthopedic Surgery scripts in chart will go home today, no nausea, vomit or diarrhea. Assessment and Plan 31 y/o male with no medical history presented to the ED via EMS with complaints of right ankle pain. Ankle Fracture, right Ankle xray reviewed shows Persistent tibiotalar dislocation. -Status post ORIF of the right ankle and repair of Syndesmosis. okay to discharge and follow with Doctor Boyd Díaz in one week. No Weight Bearing on the Right leg. DVT prophylaxis: SCD on left LE Discharge Planning Discharge Home today. Pt Condition on Discharge: Good Discharge Disposition: Discharge Home Discharge Time: <= 30 minutes Discharge Instructions DIET: Follow Instructions for: As Tolerated, No Restrictions Activities you can perform: Non Weight Bearing Marek Vergara MD Oct 20, 2016 10:06
[2016-10-20 12:45] VITALS: RESP 16
== END 2016-10-20 14:07 | disposition home or self-care (01) | DRG 494 ==
LOC: NEPC 19:45 → NEDA 22:08 → N06B 22:55
PROVIDERS: ADMIT Internal Medicine; ATTEND Internal Medicine
PROC: 0QSJXZZ Reposition Right Fibula, External Approach (ICD-10-PCS; 2016-10-18)
PROC: 0QSGXZZ Reposition Right Tibia, External Approach (ICD-10-PCS; 2016-10-18)
PROC: 0QSG04Z Reposition Right Tibia with Internal Fixation Device, Open Approach (ICD-10-PCS; 2016-10-19)
PROC: 0SSG04Z Reposition Left Ankle Joint with Internal Fixation Device, Open Approach (ICD-10-PCS; 2016-10-19)
PROC: 0QSJ04Z Reposition Right Fibula with Internal Fixation Device, Open Approach (ICD-10-PCS; principal; 2016-10-19 12:54)
DX: S82.851A Displaced trimalleolar fracture of right lower leg, initial encounter for closed fracture (principal); X50.1XXA Overexertion from prolonged static or awkward postures, initial encounter; Y93.75 Activity, martial arts; Y92.9 Unspecified place or not applicable
CPT/HCPCS: 27840; 73590; 73610; 76000; 80048; 85025; 85610; 99152; C1713; E0113; J0690; J1580; J2175; J2270; J2405; J2710; J3010; J3370; J7030

== ENCOUNTER → 2016-11-04 | Outpatient (CLI) | payer SELFPAY ==
[~2016-11-04] MED LIST changes: +ASPI81CH37 CHEW; +CRUTMIS35; +HYDR-3288 PO; -MONT10TA2
== END ==
LOC: HORT 17:39
PROVIDERS: ATTEND Orthopaedic Surgery Sports Medicine
DX: S82.891D Other fracture of right lower leg, subsequent encounter for closed fracture with routine healing (principal); X58.XXXD Exposure to other specified factors, subsequent encounter
CPT/HCPCS: L2114

== ENCOUNTER → 2017-01-24 | Day surgery (SDC) | payer SELFPAY ==
[~2017-01-24] MED LIST changes: +BUPIVACAINE/EPINEPHRINE 0.5% 50 ML VIAL ONE; +LACTATED RINGER'S 1000 ML INJ 1,000 ML ONE; +MIDAZOLAM HCL 2 MG/2 ML VIAL ONE; +ONDANSETRON HCL 4 MG/2 ML VIAL IV PUSH ONE; +PROPOFOL 100 MG/10 ML INJ IV ONE; +ceFAZolin INJ 1,000 MG VIAL ONE
--- NOTE | 2017-01-24 10:31 | MP ---
cc: JANEY FIGUEROA DATE OF SURGERY: 01/24/2017 PREOPERATIVE DIAGNOSIS Retained deep hardware right ankle status post open reduction, internal fixation. POSTOPERATIVE DIAGNOSES Retained deep hardware right ankle status post open reduction, internal fixation. PROCEDURE Removal of deep hardware, right ankle. SURGEON Dr. Janey Figueroa. GRAIN UNLOADER Janey Uriostegui PA-C. ANESTHESIA General. ESTIMATED BLOOD LOSS Less than 10 cc. TOURNIQUET TIME Zero minutes. COMPLICATIONS None. JUSTIFICATION This patient is a 31-year male who sustained a severe right ankle fracture-dislocation which required surgical open reduction, internal fixation. Clinical exam as well as x-ray findings revealed healing of his injury with continued symptomatic pain from retained hardware. The patient was counseled as to the risks, benefits and alternatives of the above-named proposed surgical procedure. He did wish to proceed with surgery. PROCEDURE IN DETAIL A written consent was obtained. The patient was identified by name, taken to the operating room and placed supine on the operating table. General anesthesia was administered as well as two grams of IV Ancef. The right lower extremity was prepped and draped using isopropyl alcohol, Hibiclens solution and DuraPrep solution. A timeout was performed. Using the assistance of fluoroscopic guidance a longitudinal incision was made over the lateral aspect of the right ankle. A [place] elevator was used to elevate the periosteum over the region of the distal fibula and a screwdriver was then used to remove the syndesmotic screw along the fracture. Fluoroscopic imaging confirmed hardware removal. The surgical wound was thoroughly irrigated with sterile saline solution. The subcutaneous layer was closed with 3-0 Vicryl suture, skin was closed with Dermabond. Sterile dressing was applied. The patient tolerated the procedure well with no intraoperative complications noted. MD EFREN Celis/ADRIANA /10:07 AM /10:10 AM
== END | disposition home or self-care (01) ==
LOC: ESDC 08:24
PROVIDERS: ATTEND Orthopaedic Surgery Sports Medicine
DX: T84.84XA Pain due to internal orthopedic prosthetic devices, implants and grafts, initial encounter (principal)
CPT/HCPCS: 01480; 20680; 73600; 76000; J0690; J2250; J2405; J3010; J7120